=== PATIENT | female | born 1940 | race Caucasian/White ===

== ENCOUNTER 2016-06-03 09:10 | Outpatient (CLI) | payer MEDICARE, OTHER | END 2016-06-03 23:59 | DX: I10 Essential (primary) hypertension (principal) ==

== ENCOUNTER 2017-05-20 08:00 | Outpatient (CLI) | payer MEDICARE, OTHER | END 2017-05-20 08:01 | disposition home or self-care (01) | LOC: LAB.R 08:00 | PROVIDERS: ATTEND Family Medicine | DX: R35.0 Frequency of micturition (principal) | CPT/HCPCS: 87077; 87086 ==

== ENCOUNTER 2017-06-23 08:00 | Outpatient (CLI) | payer MEDICARE, OTHER ==
[2017-06-23 12:49] LABS: BASOPHILS % (AUTO) 0.4 %; EOSINOPHILS # (AUTO) 0.2 10^3/uL (0.0-0.7); EOSINOPHILS % (AUTO) 3.2 %; HGB - HEMOGLOBIN 13.2 g/dL (12.0-16.0); LYMPHOCYTES # (AUTO) 1.5 10^3/uL (1.5-3.5); LYMPHOCYTES % (AUTO) 24.2 %; MEAN CORPUSCULAR HEMOGLOBIN 29.4 pg (27.0-31.0); MEAN CORPUSCULAR HGB CONC 33.3 g/dL (32.0-36.0); MEAN CORPUSCULAR VOLUME 88.3 fL (81.0-99.0); MEAN PLATELET VOLUME 8.4 fL (7.9-10.8); MONOCYTES # (AUTO) 0.5 10^3/uL (0.0-1.0); MONOCYTES % (AUTO) 7.9 %; NEUTROPHILS % (AUTO) 64.3 %; PLT - PLATELET COUNT 284 10^3/uL (130-450); RED BLOOD COUNT 4.49 10^6/uL (4.20-5.40); RED CELL DISTRIBUTION WIDTH 13.8 % (12.0-15.0); WHITE BLOOD COUNT 6.2 x10^3/uL (4.8-10.8)
[2017-06-23 13:41] LABS: ALBUMIN 3.3 g/dL (3.2-5.5); ALKALINE PHOSPHATASE 57 IU/L (42-121); ALT ALANINE AMINOTRANSFERASE 16 IU/L (10-60); AST ASPARTATE AMINOTRANSFERASE 22 IU/L (10-42); BILIRUBIN,TOTAL 0.4 mg/dL (0.2-1.0); BUN - BLOOD UREA NITROGEN 18 mg/dL (6-20); CALCIUM 8.7 mg/dL (8.5-10.3); CARBON DIOXIDE - CO2 28 mmol/L (21-32); CHLORIDE 108 mmol/L (101-111); CHOL/HDL RATIO 3.1 (<4.4); CHOLESTEROL 175 mg/dL; GFR - MDRD 54 (>89); GLUCOSE 90 mg/dL (70-100); HDL CHOLESTEROL 57 mg/dL; LDL CHOLESTEROL,CALCULATED 97 mg/dL; LDL/HDL RATIO 1.7 (<4.4); SODIUM 139 mmol/L (135-145); TOTAL PROTEIN 6.5 g/dL (6.7-8.2); VLDL CHOLESTEROL 21 mg/dL
== END 2017-06-23 08:01 | disposition home or self-care (01) ==
LOC: LAB.WCP 08:00
PROVIDERS: ATTEND Family Medicine
DX: E78.5 Hyperlipidemia, unspecified (principal)
CPT/HCPCS: 36415; 80053; 80061; 83721; 85025

== ENCOUNTER 2018-03-01 09:25 | Outpatient (CLI) | payer MEDICARE, OTHER ==
--- NOTE | 2018-03-02 14:40 | Mammography Report ---
Reason: ANNUAL SCREENING Procedure Date: 03/01/2018 Accession Number: [id number] / [id number] Procedure: HARRY - Screening Mammo w/Yovanny CPT Code: FULL RESULT: EXAM: Screening Mammo w/Yovanny DATE: 03/01/2018 11:06 AM CLINICAL HISTORY: Routine screening. No personal or family history of breast cancer. TECHNIQUE: Bilateral CC and MLO views were obtained. COMPARISON: 02/28/2016 through 11/01/2012. FINDINGS: The breasts demonstrate scattered fibroglandular densities bilaterally. Bilateral breast: There are multiple stable round and oval benign-appearing masses some of which are associated with popcorn type calcification in the left breast. There are no suspicious masses, calcifications or areas of distortion. IMPRESSION: Benign findings RECOMMENDATION: Routine annual screening unless otherwise clinically indicated. BI-RADS CATEGORY 2: Benign findings STANDARD QUALIFYING STATEMENTS: 1. This examination was not reviewed with the aid of Computer-Aided Detection (CAD). 2. A negative or benign imaging report should not preclude biopsy if clinically suspicious findings are present. 3. Dense breasts may obscure an underlying neoplasm. 4. This examination was reviewed with the aid of 3D breast imaging (tomosynthesis).
== END 2018-03-01 09:26 | disposition home or self-care (01) ==
LOC: DI 09:25
DX: Z12.31 Encounter for screening mammogram for malignant neoplasm of breast (principal)
CPT/HCPCS: 77063; 77067

== ENCOUNTER 2018-04-26 14:41 | Outpatient (CLI) | payer MEDICARE, OTHER ==
[2018-04-26 19:29] LABS: BASOPHILS % (AUTO) 0.3 %; EOSINOPHILS # (AUTO) 0.2 10^3/uL (0.0-0.7); EOSINOPHILS % (AUTO) 3.2 %; HGB - HEMOGLOBIN 13.2 g/dL (12.0-16.0); LYMPHOCYTES # (AUTO) 1.5 10^3/uL (1.5-3.5); LYMPHOCYTES % (AUTO) 24.8 %; MEAN CORPUSCULAR HEMOGLOBIN 29.6 pg (27.0-31.0); MEAN CORPUSCULAR HGB CONC 32.7 g/dL (32.0-36.0); MEAN CORPUSCULAR VOLUME 90.5 fL (81.0-99.0); MEAN PLATELET VOLUME 9.3 fL (7.9-10.8); MONOCYTES # (AUTO) 0.4 10^3/uL (0.0-1.0); MONOCYTES % (AUTO) 6.8 %; NEUTROPHILS % (AUTO) 64.9 %; PLT - PLATELET COUNT 281 10^3/uL (130-450); RED BLOOD COUNT 4.47 10^6/uL (4.20-5.40); RED CELL DISTRIBUTION WIDTH 14.4 % (12.0-15.0); WHITE BLOOD COUNT 6.1 x10^3/uL (4.8-10.8)
[2018-04-26 19:48] LABS: ALBUMIN 3.5 g/dL (3.2-5.5); ALBUMIN/GLOBULIN RATIO 1.2 (1.0-2.2); ALKALINE PHOSPHATASE 68 IU/L (42-121); ALT ALANINE AMINOTRANSFERASE 18 IU/L (10-60); AST ASPARTATE AMINOTRANSFERASE 27 IU/L (10-42); BILIRUBIN,TOTAL 0.8 mg/dL (0.2-1.0); BUN - BLOOD UREA NITROGEN 14 mg/dL (6-20); CALCIUM 8.8 mg/dL (8.5-10.3); CARBON DIOXIDE - CO2 28 mmol/L (21-32); CHLORIDE 107 mmol/L (101-111); CHOL/HDL RATIO 2.7 (<4.4); CHOLESTEROL 182 mg/dL; CREATININE 0.8 mg/dL (0.4-1.0); GFR - MDRD 70 (>89); GLUCOSE 87 mg/dL (70-100); HDL CHOLESTEROL 68 mg/dL; LDL CHOLESTEROL,CALCULATED 98 mg/dL; LDL/HDL RATIO 1.4 (<4.4); SODIUM 142 mmol/L (135-145); TOTAL PROTEIN 6.5 g/dL (6.7-8.2); VLDL CHOLESTEROL 16 mg/dL
== END 2018-04-26 23:59 | disposition home or self-care (01) ==
LOC: LAB.WCP 14:41
PROVIDERS: ATTEND Family Medicine
DX: E78.5 Hyperlipidemia, unspecified (principal); E66.9 Obesity, unspecified
CPT/HCPCS: 36415; 80053; 80061; 83721; 84443; 85025

== ENCOUNTER 2018-06-28 08:00 | Outpatient (CLI) | payer MEDICARE, OTHER | END 2018-06-28 23:59 | disposition home or self-care (01) | LOC: LAB.R 08:00 | PROVIDERS: ATTEND Family Medicine | DX: N39.0 Urinary tract infection, site not specified (principal) | CPT/HCPCS: 87086; 87181 ==

== ENCOUNTER 2018-11-03 08:00 | Outpatient (CLI) | payer MEDICARE, OTHER | END 2018-11-03 23:59 | disposition home or self-care (01) | LOC: LAB.R 08:00 | PROVIDERS: ATTEND Family Medicine | DX: N39.0 Urinary tract infection, site not specified (principal) | CPT/HCPCS: 87086 ==

== ENCOUNTER 2018-11-03 08:00 | Outpatient (CLI) | payer MEDICARE, OTHER | END 2018-11-03 08:01 | disposition home or self-care (01) | LOC: LAB.WCP 08:00 | PROVIDERS: ATTEND Family Medicine | DX: N39.0 Urinary tract infection, site not specified (principal) | CPT/HCPCS: 81002; 87086 ==

== ENCOUNTER 2018-11-04 12:05 | Outpatient (CLI) | payer MEDICARE, OTHER ==
--- NOTE | 2018-11-04 14:47 | XRAY Report ---
Reason: LOW BACK PAIN Procedure Date: 11/04/2018 Accession Number: [id number] / [id number] Procedure: XR - Lumbar Spine 2 View CPT Code: FULL RESULT: EXAM: LUMBOSACRAL SPINE RADIOGRAPHY EXAM DATE: 11/04/2018 12:18 PM. CLINICAL HISTORY: Low back pain. COMPARISONS: None. TECHNIQUE: 3 views. FINDINGS: The bones are qualitatively osteopenic; this limits evaluation for underlying fractures or masses. The patient had difficulty holding still which degraded the lateral view limiting evaluation, motion artifact. Alignment: There are approximately 1.1 cm of anterolisthesis of L4 on L5, approximately 3 mm of anterolisthesis of L3 on L4 with approximately 5 mm of retrolisthesis of L2 on L3. No scoliosis. Bones: Five uki-xlz-mnesrkf lumbar vertebral bodies are present. No fractures or bone lesions. Disks: There is mild multilevel loss of disk space height. Facets: There is severe facet arthropathy at L5 and at least moderate facet arthropathy throughout the remaining lumbar spine. Sacroiliac Joints: Unremarkable. Soft Tissues: Normal. The visualized bowel gas pattern is normal. IMPRESSION: Multilevel anterolisthesis with significant facet arthropathy as described. RADIA
== END 2018-11-04 12:06 | disposition home or self-care (01) ==
LOC: DI 12:05
PROVIDERS: ATTEND Family Medicine
DX: M47.816 Spondylosis without myelopathy or radiculopathy, lumbar region (principal)
CPT/HCPCS: 72100

== ENCOUNTER 2019-04-15 09:53 | Outpatient (CLI) | payer MEDICARE, OTHER ==
--- NOTE | 2019-04-18 08:51 | Mammography Report ---
Reason: ROUTINE MAMMO Procedure Date: 04/15/2019 Accession Number: [id number] / [id number] Procedure: HARRY - Screening Mammo w/Yovanny CPT Code: Final Report FULL RESULT: EXAM: Screening Mammo w/Yovanny DATE: 04/15/2019 10:23 AM CLINICAL HISTORY: Screening encounter. TECHNIQUE: (B) - Bilateral CC and MLO views were obtained. COMPARISON: 03/01/2018 through 11/01/2012. PARENCHYMAL PATTERN: (A) - The breast(s) demonstrate(s) scattered fibroglandular densities. FINDINGS: There are coarse typically benign calcifications. There are no suspicious masses, calcifications, or areas of distortion. IMPRESSION: Benign findings. BI-RADS category 2. RECOMMENDATION: (ANNUAL) - Recommend routine annual screening mammography. BI-RADS CATEGORY: (2) - Benign Findings. STANDARD QUALIFYING STATEMENTS: 1. This examination was not reviewed with the aid of Computer-Aided Detection (CAD). 2. A negative or benign imaging report should not preclude biopsy if clinically suspicious findings are present. 3. Dense breasts may obscure an underlying neoplasm. 4. This examination was reviewed with the aid of 3D breast imaging (tomosynthesis).
== END 2019-04-15 09:54 | disposition home or self-care (01) ==
LOC: DI 09:53
DX: Z12.31 Encounter for screening mammogram for malignant neoplasm of breast (principal)
CPT/HCPCS: 77063; 77067

== ENCOUNTER 2020-01-20 08:00 | Outpatient (CLI) | payer MEDICARE, OTHER ==
[2020-01-20 19:06] LABS: BASOPHILS % (AUTO) 0.3 %; EOSINOPHILS # (AUTO) 0.2 10^3/uL (0.0-0.7); EOSINOPHILS % (AUTO) 2.9 %; HGB - HEMOGLOBIN 13.2 g/dL (12.0-16.0); LYMPHOCYTES # (AUTO) 1.6 10^3/uL (1.5-3.5); LYMPHOCYTES % (AUTO) 23.9 %; MEAN CORPUSCULAR HEMOGLOBIN 29.6 pg (27.0-31.0); MEAN CORPUSCULAR HGB CONC 31.6 g/dL (32.0-36.0); MEAN CORPUSCULAR VOLUME 93.7 fL (81.0-99.0); MEAN PLATELET VOLUME 11.2 fL (7.9-10.8); MONOCYTES # (AUTO) 0.5 10^3/uL (0.0-1.0); MONOCYTES % (AUTO) 7.7 %; NEUTROPHILS # (AUTO) 4.3 10^3/uL (1.5-6.6); NEUTROPHILS % (AUTO) 64.9 %; PLT - PLATELET COUNT 289 10^3/uL (130-450); RED BLOOD COUNT 4.46 10^6/uL (4.20-5.40); RED CELL DISTRIBUTION WIDTH 14.6 % (12.0-15.0); WHITE BLOOD COUNT 6.6 x10^3/uL (4.8-10.8)
[2020-01-20 19:26] LABS: ALBUMIN 3.6 g/dL (3.2-5.5); ALBUMIN/GLOBULIN RATIO 1.1 (1.0-2.2); ALKALINE PHOSPHATASE 57 IU/L (42-121); ALT ALANINE AMINOTRANSFERASE 16 IU/L (10-60); AST ASPARTATE AMINOTRANSFERASE 22 IU/L (10-42); BILIRUBIN,TOTAL 0.8 mg/dL (0.2-1.0); BUN - BLOOD UREA NITROGEN 20 mg/dL (6-20); CALCIUM 9.2 mg/dL (8.5-10.3); CARBON DIOXIDE - CO2 27 mmol/L (21-32); CHLORIDE 106 mmol/L (101-111); CHOL/HDL RATIO 2.6 (<4.4); CHOLESTEROL 169 mg/dL; CREATININE 0.8 mg/dL (0.4-1.0); GLUCOSE 94 mg/dL (70-100); HDL CHOLESTEROL 66 mg/dL; LDL CHOLESTEROL,CALCULATED 92 mg/dL; LDL/HDL RATIO 1.4 (<4.4); SODIUM 141 mmol/L (135-145); TOTAL PROTEIN 6.9 g/dL (6.7-8.2); VLDL CHOLESTEROL 11 mg/dL
== END 2020-01-20 23:59 | disposition home or self-care (01) ==
LOC: LAB.WCP 08:00
PROVIDERS: ATTEND Internal Medicine Cardiovascular Disease
DX: I48.91 Unspecified atrial fibrillation (principal); E78.5 Hyperlipidemia, unspecified
CPT/HCPCS: 36415; 80053; 80061; 83721; 85025

== ENCOUNTER 2020-05-03 08:28 | Outpatient (CLI) | payer MEDICARE, OTHER ==
--- NOTE | 2020-05-04 07:16 | Mammography Report ---
BILATERAL DIGITAL SCREENING MAMMOGRAM 3D/2D: 05/03/2020 CLINICAL: Routine screening. Comparison is made to exams dated: 04/15/2019 mammogram, 03/01/2018 mammogram, and 02/28/2016 mammog [facility]. The tissue of both breasts is predominantly fatty. There is a benign calcification in the left breast. No significant masses, calcifications, or other findings are seen in either breast. There has been no significant interval change. IMPRESSION: BENIGN There is no mammographic evidence of malignancy. A 1 year screening mammogram is recommended. This exam was interpreted at Station ID: [id number]. NOTE: For mammograms, a report in lay terms will be sent to the patient. Approximately 15% of breast malignancies will not be visualized mammographically. In the management of a palpable breast mass, a negative mammogram must not discourage biopsy of a clinically suspicious lesion. Electronically Signed By: Gail montesinos/penrad:05/03/2020 10:46:08 ACR BI-RADS Category 2: Benign Finding(s) 3342F PARENCHYMAL PATTERN: (F) - The breast(s) demonstrate(s) diffuse fatty replacement. BI-RADS CATEGORY: (2) - 2 RECOMMENDATION: (ANNUAL) - Recommend routine annual screening mammography. [id number] 1 year screening LATERALITY: (B)
== END 2020-05-03 08:29 | disposition home or self-care (01) ==
LOC: DI.N 08:28
DX: Z12.31 Encounter for screening mammogram for malignant neoplasm of breast (principal)
CPT/HCPCS: 77067

== ENCOUNTER 2021-01-12 08:00 | Outpatient (CLI) | payer MEDICARE, OTHER | END 2021-01-12 23:59 | disposition home or self-care (01) | LOC: LAB.N 08:00 | PROVIDERS: ATTEND Family Medicine | DX: N39.0 Urinary tract infection, site not specified (principal) | CPT/HCPCS: 87086; 87181 ==

== ENCOUNTER 2021-01-24 13:21 | Outpatient (CLI) | payer MEDICARE, OTHER | END 2021-01-24 23:59 | disposition home or self-care (01) | LOC: LAB.N 13:21 | PROVIDERS: ATTEND Family Medicine | DX: N39.0 Urinary tract infection, site not specified (principal) | CPT/HCPCS: 87086; 87181 ==

== ENCOUNTER 2021-03-04 11:00 | Outpatient (CLI) | payer MEDICARE, OTHER ==
[2021-03-04 18:16] LABS: BASOPHILS % (AUTO) 0.3 %; EOSINOPHILS # (AUTO) 0.1 10^3/uL (0.0-0.7); EOSINOPHILS % (AUTO) 3.6 %; HGB - HEMOGLOBIN 13.6 g/dL (12.0-16.0); LYMPHOCYTES # (AUTO) 1.5 10^3/uL (1.5-3.5); LYMPHOCYTES % (AUTO) 37.6 %; MEAN CORPUSCULAR HGB CONC 30.9 g/dL (32.0-36.0); MEAN CORPUSCULAR VOLUME 93.8 fL (81.0-99.0); MEAN PLATELET VOLUME 10.2 fL (7.9-10.8); MONOCYTES # (AUTO) 0.4 10^3/uL (0.0-1.0); MONOCYTES % (AUTO) 11.3 %; NEUTROPHILS # (AUTO) 1.8 10^3/uL (1.5-6.6); NEUTROPHILS % (AUTO) 46.9 %; PLT - PLATELET COUNT 276 10^3/uL (130-450); RED BLOOD COUNT 4.69 10^6/uL (4.20-5.40); RED CELL DISTRIBUTION WIDTH 14.5 % (12.0-15.0); WHITE BLOOD COUNT 3.9 x10^3/uL (4.8-10.8)
[2021-03-04 18:40] LABS: ALBUMIN 3.5 g/dL (3.2-5.5); ALBUMIN/GLOBULIN RATIO 1.1 (1.0-2.2); ALKALINE PHOSPHATASE 57 IU/L (42-121); ALT ALANINE AMINOTRANSFERASE 20 IU/L (10-60); AST ASPARTATE AMINOTRANSFERASE 26 IU/L (10-42); BILIRUBIN,TOTAL 0.7 mg/dL (0.2-1.0); BUN - BLOOD UREA NITROGEN 21 mg/dL (6-20); CALCIUM 8.9 mg/dL (8.5-10.3); CARBON DIOXIDE - CO2 31 mmol/L (21-32); CHLORIDE 102 mmol/L (101-111); CHOL/HDL RATIO 3.3 (<4.4); CHOLESTEROL 238 mg/dL; CREATININE 0.9 mg/dL (0.4-1.0); GFR - MDRD 60 (>89); GLUCOSE 80 mg/dL (70-100); HDL CHOLESTEROL 73 mg/dL; LDL CHOLESTEROL,CALCULATED 156 mg/dL; LDL/HDL RATIO 2.1 (<4.4); POTASSIUM 4.7 mmol/L (3.5-5.0); SODIUM 139 mmol/L (135-145); TOTAL PROTEIN 6.7 g/dL (6.7-8.2); TRIGLYCERIDES 45 mg/dL; VLDL CHOLESTEROL 9 mg/dL
[2021-03-04 18:44] LABS: THYROID STIMULATING HORMONE 2.06 uIU/mL (0.34-5.60)
== END 2021-03-04 23:59 | disposition home or self-care (01) ==
LOC: LAB.WCP 11:00
PROVIDERS: ATTEND Family Medicine
DX: M43.16 Spondylolisthesis, lumbar region (principal); I48.0 Paroxysmal atrial fibrillation; J44.9 Chronic obstructive pulmonary disease, unspecified; J98.4 Other disorders of lung; I10 Essential (primary) hypertension; E78.5 Hyperlipidemia, unspecified
CPT/HCPCS: 36415; 80053; 80061; 83721; 84443; 85025

== ENCOUNTER 2021-04-16 10:32 | Emergency (ER) | payer MEDICARE, OTHER ==
--- NOTE | 2021-04-16 11:26 | XRAY Report ---
PROCEDURE: Wrist 4 View LT INDICATIONS: Trauma TECHNIQUE: 4 views of the wrist were acquired. COMPARISON: None FINDINGS: Bones: There is a comminuted, mildly impacted intra-articular fracture of the distal left radius wit h dorsal angulation of the distal fracture fragment. Carpal alignment appears to be maintained. There is widening of the scapholunate interval. No definite scaphoid fracture visualized. Small ossificati on proximal to the distal left ulnar styloid process may represent an accessory ossicle, remote injur y, versus displaced fracture off the tip of the ulnar styloid. This area is not well visualized on pr ovided images. Diffuse osteopenia. No suspicious bony lesions. Scaphoid view: No definite scaphoid fracture. Mild widening of the scapholunate interval. Soft tissues: No suspicious soft tissue calcifications. IMPRESSION: Moderately displaced comminuted, intra-articular fracture of the distal left radius. Widening of the scapholunate interval suggestive of scapholunate ligament injury. No definite scaphoi d fracture visualized. Age-indeterminate ossification adjacent to the distal tip of the ulnar styloid process which may repr esent a displaced styloid tip fracture fragment. Reviewed by: Estuardo Emery MD on 04/16/2021 11:25 AM PST Approved by: Estuardo Emery MD on 04/16/2021 11:25 AM PST Station ID: [id number]
[2021-04-16] MEDS ORDERED: ROPIVACAINE 0.5% PF 30 ML VIAL SUBQ STA (12:34)
--- NOTE | 2021-04-16 12:41 | ED Physician Documentation ---
PD HPI UPPER EXT INJURY - Stated complaint Stated Complaint: LT WRIST INJ - Chief complaint Chief Complaint: Trauma Ext - History obtained from History obtained from: Patient - History of Present Illness Location: Left, Wrist Type of injury: Fall Where injury occurred: Home Timing - onset: How many hours ago (1) Timing - duration: Hours (1) Pain level max: 5 Pain level now: 4 Improved by: Rest, Immobilization Worsened by: Moving, Palpating Associated symptoms: No: Weakness, Numbness, Tingling, Swelling Contributing factors: No: Anticoagulated, Prior ortho surgery, Prosthetic joint, Work related - Additonal information Additional information: Patient is right handed no head, neck or back pain Review of Systems Constitutional: denies: Fever, Chills Nose: denies: Rhinorrhea / runny nose, Congestion Throat: denies: Sore throat Cardiac: denies: Chest pain / pressure Respiratory: denies: Cough GI: denies: Nausea, Vomiting, Constipation, Diarrhea Skin: denies: Rash Musculoskeletal: denies: Neck pain, Back pain PD PAST MEDICAL HISTORY - Past Medical History Past Medical History: Yes Cardiovascular: Atrial fibrillation, Other Respiratory: Asthma, COPD Endocrine/Autoimmune: None GI: Hiatal hernia, Diverticulitis : Other HEENT: None, Other Psych: None Musculoskeletal: Osteoarthritis Derm: None - Past Surgical History General: Colonoscopy Ortho: 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 surgery /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: LEEP (Cervical surgery) - Present Medications Home Medications: Ambulatory Orders Medication Instructions Recorded Confirmed Albuterol [Ventolin Hfa] 2 puffs INH Q4H PRN 07/28/14 08/03/14 Aspirin [Aspir 81] 81 mg PO DAILY 07/28/14 08/03/14 Atorvastatin [Lipitor] 20 mg PO DAILY 07/28/14 08/03/14 Ferrous Sulfate [Iron Supplement] 325 mg PO DAILY 07/28/14 08/03/14 Fluticasone/Salmeterol 250/50 1 puffs INH BID 07/28/14 08/03/14 [Advair 250 Mcg/50 Mcg] Pyridoxine HCl [Vitamin B-6] 25 mg PO DAILY 07/28/14 08/03/14 atenoloL [Atenolol] 12.5 mg PO DAILY 07/28/14 08/03/14 HYDROcod/ACETAM 5/325 [[place] 5/325] 1 - 2 ea PO Q6H PRN #14 tablet 04/16/21 - Allergies Allergies/Adverse Reactions: Allergies Allergy/AdvReac Type Severity Reaction Status Date / Time atenolol Allergy Unknown Verified 04/16/21 10:38 ciprofloxacin Allergy Rash Verified 04/16/21 10:38 metronidazole [From Flagyl] Allergy Rash Verified 04/16/21 10:38 pollen extracts Allergy Unknown Verified 04/16/21 12:43 PD ED PE NORMAL - Vitals Vital signs reviewed: Yes - General General: Alert and oriented X 3, No acute distress - HEENT HEENT: Moist mucous membranes - Neck Neck: Supple, no meningeal sign - Cardiac Cardiac: RRR, Strong equal pulses - Respiratory Respiratory: No respiratory distress, Clear bilaterally - Abdomen Abdomen: Soft, Non tender, Non distended - Derm Derm: Warm and dry - Extremities Extremities: Other (deformity to the L wrist. NVI.) - Neuro Neuro: Alert and oriented X 3 - Psych Psych: Normal mood, Normal affect Results - Vitals Vitals: Vital Signs - 24 hr 04/16/21 04/16/21 10:38 14:37 Temperature 36.5 C 36.6 C Heart Rate 100 101 H Respiratory 16 14 Rate Blood Pressure 152/79 H 101/71 O2 Saturation 97 99 Oxygen O2 Source Room air - Rads (name of study) L wrist Radiology: Final report received, EMP read contemporaneously, See rad report (IMPRESSION: Moderately displaced comminuted, intra-articular fracture of the distal left radius. Widening of the scapholunate interval suggestive of scapholunate ligament injury. No definite scaphoid fracture visualized. ) L wrist post reduction Radiology: Final report received, EMP read contemporaneously, See rad report (Intra-articular, distal radius fracture dorsally displaced and angulated. ) Procedures - Splint (location) L wrist Splint applied by: Physician, Tech Type of splint: Fiberglass, Sugar tong Other: Patient tolerated well, No complications, Neurovascular intact, Good alignment, Sling provided - Reduction Body part reduced: Left, Wrist Fracture or dislocation: Fracture Anesthesia: Hematoma block, Other (ropivicaine) Reduction aftercare: NV intact, Xray confirms reduction, Alignment improved, Splint applied, Sling, Patient tolerated well PD MEDICAL DECISION MAKING - ED course Complexity details: reviewed results, re-evaluated patient, considered differential, d/w patient, d/w product/industry consultant ED course: 80-year-old female with a left wrist fracture. This was reduced with closed reduction. Will likely need operative intervention as appears to have ligamentous injury as well. Neurovascularly intact. Orthopedic PAMateo, assisted with the reduction. I am prescribing a short course of short-acting opioid pain medication for this patient. 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 I have discussed that the opioids are for short term therapy only, and will not be refilled from the ED. patient counseled regarding signs and symptoms for which I believe and urgent re-evaluation would be necessary. Patient with good understanding of and agreement to plan and is comfortable going home at this time This document was made in part using voice recognition software. While efforts are made to proofread this document, sound alike and grammatical errors may occur. Departure - Departure Disposition: 01 Home, Self Care Clinical Impression: Wrist fracture Qualifiers: Encounter type: initial encounter Fracture type: closed Laterality: left Qualified Code(s): S62.102A - Fracture of unspecified carpal bone, left wrist, initial encounter for closed fracture Condition: Good Instructions: ED Fx Wrist General Follow-Up: [facility] [Provider Group] - Within 1 week Prescriptions: HYDROcod/ACETAM 5/325 [[place]arshall 5/325] 1 - 2 ea PO Q6H PRN #14 tablet PRN Reason: Pain Comments: Please follow-up with orthopedics in 1 week for repeat evaluation. Your pain medication was sent to [facility] in [place]. Return if you worsen. Keep the area elevated. Do not place any rings or constrictive devices on your fingers. I am prescribing a short course of narcotic pain medication for you. These are p otentially dangerous and addictive medications that should be used carefully. These medications may constipate you. Take an mwwk-ago-mhksnmk stool softener (docusate) twice daily with plenty of water while taking these medications. If you go 24 hours without a bowel movement, take jihp-tfb-dvlanaa miralax, per package instructions. Do not drink or drive while taking these medications. If you received narcotic or sedating medications while in the emergency department, do not drive for 24 hours. Store this medication in a safe, secure place and out of reach of children. It is a violation of federal law to give or sell this medication to another person or to use in a manner other than prescribed. The ED will not refill narcotic prescriptions, including prescriptions lost or stolen. To dispose of unwanted medications: 1. [facility] at [address] in [place] has a medication drop box. They accept prescription medications (in pill form) Thursday through Thursday 9:00 a.m. to 5:00 p.m. 2. The [facility] accepts prescription medications (in pill form only) for disposal year round. Call for more informat ion. 3. Contact the [facility] for the next [facility] sponsored prescription drug collection event. , [phone], or [phone]; Discharge Date/Time: 04/16/21 14:40
[2021-04-16] MEDS: ROPIVACAINE 0.5% PF 20 ML AMPULE SUBQ ONE (13:36)
--- NOTE | 2021-04-16 13:53 | XRAY Report ---
PROCEDURE: Wrist 2 View LT INDICATIONS: post reduction TECHNIQUE: 2 views of the wrist were acquired. COMPARISON: 04/08/2021 at 1047 hours. FINDINGS: Bones: Comminuted comminuted fracture of the distal radius. Ulnar styloid process fracture noted. Rad ius fracture is dorsally displaced and angulated. Ulnar styloid process fractures distally displaced. Soft tissues: No suspicious soft tissue calcifications. IMPRESSION: Intra-articular, distal radius fracture dorsally displaced and angulated. Reviewed by: Pina Dodson MD, PhD on 04/16/2021 1:51 PM PST Approved by: Pina Dodson MD, PhD on 04/16/2021 1:51 PM PST Station ID: [id number]
[2021-04-16] MEDS: HYDROcod/ACETAM 5/325 MG TABLET PO STA (14:15)
[2021-04-16 14:40] VITALS: BP 101/71
== END 2021-04-16 14:40 | disposition home or self-care (01) ==
LOC: ED 10:32
DX: S52.572A Other intraarticular fracture of lower end of left radius, initial encounter for closed fracture (principal); W01.0XXA Fall on same level from slipping, tripping and stumbling without subsequent striking against object, initial encounter; Y92.009 Unspecified place in unspecified non-institutional (private) residence as the place of occurrence of the external cause
CPT/HCPCS: 25605; 73100; 73110; 99283; A9270

== ENCOUNTER 2021-04-18 09:40 | Emergency (ER) | payer MEDICARE, OTHER ==
[2021-04-18 09:51] VITALS: BP 132/88
[2021-04-18] MEDS ORDERED: oxyCODONE 5 MG TABLET PO STA (10:01)
--- NOTE | 2021-04-18 10:05 | ED Physician Documentation ---
History of Present Illness - Stated complaint Stated Complaint: L WRIST PAIN,CONSTIPATION - Chief complaint Chief Complaint: Ext Problem - History obtained from History obtained from: Patient - History of Present Illness Timing: Today Pain level max: 9 Pain level now: 7 - Additonal information Additional information: Patient is a 80-year-old female who presents to the emergency department complaining of left wrist pain. Seen here 2 days ago for left wrist fracture. Patient has an appointment on Thursday with orthopedics. She states that her PCP would not change her pain medications and referred her back to the ER for pain management. Patient also complains of constipation. Is not taking anything for this. Review of Systems Constitutional: denies: Fever, Chills Respiratory: denies: Cough GI: reports: Constipation. 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 SME: LEEP (Cervical surgery) - Present Medications Home Medications: Ambulatory Orders Medication Instructions Recorded Confirmed Albuterol [Ventolin Hfa] 2 puffs INH Q4H PRN 07/28/14 08/03/14 Aspirin [Aspir 81] 81 mg PO DAILY 07/28/14 08/03/14 Atorvastatin [Lipitor] 20 mg PO DAILY 07/28/14 08/03/14 Ferrous Sulfate [Iron Supplement] 325 mg PO DAILY 07/28/14 08/03/14 Fluticasone/Salmeterol 250/50 1 puffs INH BID 07/28/14 08/03/14 [Advair 250 Mcg/50 Mcg] Pyridoxine HCl [Vitamin B-6] 25 mg PO DAILY 07/28/14 08/03/14 atenoloL [Atenolol] 12.5 mg PO DAILY 07/28/14 08/03/14 HYDROcod/ACETAM 5/325 [[place] 5/325] 1 - 2 ea PO Q6H PRN #14 tablet 04/16/21 Magnesium Citrate 296 ml PO ONCE PRN #296 ml 04/18/21 Oxycodone HCl/Acetaminophen 1 - 2 each PO Q6H PRN #20 tablet 04/18/21 [Percocet 5-325 mg Tablet] polyethylene glycoL 3350 [Miralax] 17 gm PO DAILY PRN #1 bottle 04/18/21 - Allergies Allergies/Adverse Reactions: Allergies Allergy/AdvReac Type Severity Reaction Status Date / Time atenolol Allergy Unknown Verified 04/18/21 09:51 ciprofloxacin Allergy Rash Verified 04/18/21 09:51 metronidazole [From Flagyl] Allergy Rash Verified 04/18/21 09:51 pollen extracts Allergy Unknown Verified 04/18/21 09:51 PD ED PE NORMAL - Vitals Vital signs reviewed: Yes - General General: Alert and oriented X 3, No acute distress - HEENT HEENT: Moist mucous membranes - Neck Neck: Supple, no meningeal sign - Cardiac Cardiac: RRR - Respiratory Respiratory: No respiratory distress, Clear bilaterally - Derm Derm: Warm and dry - Extremities Extremities: Other (L arm in splint. NVI. mild swelling to hand. no bruising. brisk cap refill. normal skin temperature and color. ) - Neuro Neuro: Alert and oriented X 3 Results - Vitals Vitals: Vital Signs - 24 hr 04/18/21 09:44 Temperature 36.6 C Heart Rate 94 Respiratory 17 Rate Blood Pressure 132/88 H O2 Saturation 99 Oxygen O2 Source Room air PD MEDICAL DECISION MAKING - ED course Complexity details: reviewed old records, considered differential, d/w patient ED course: Patient with a known wrist fracture. We will change her pain medication for home. She has an appointment on Thursday with orthopedics. We will have her follow-up with orthopedics for further care. We will also place her on MiraLAX for constipation. Patient counseled regarding signs and symptoms for which I believe and urgent re-evaluation would be necessary. Patient with good understanding of and agreement to plan and is comfortable going home at this time This document was made in part using voice recognition software. While efforts are made to proofread this document, sound alike and grammatical errors may occur. I am prescribing a short course of short-acting opioid pain medication for this patient. 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 I have discussed that the opioids are for short term therapy only, and will not be refilled from the ED. Departure - Departure Disposition: 01 Home, Self Care Clinical Impression: Wrist fracture Qualifiers: Encounter type: initial encounter Fracture type: closed Laterality: left Qualified Code(s): S62.102A - Fracture of unspecified carpal bone, left wrist, initial encounter for closed fracture Constipation Qualifiers: Constipation type: unspecified constipation type Qualified Code(s): K59.00 - Constipation, unspecified Condition: Good Instructions: ED Constipation, ED Fx Wrist General Follow-Up: [facility] [Provider Group] - 04/22/21 Prescriptions: Magnesium Citrate 296 ml PO ONCE PRN #296 ml PRN Reason: Constipation polyethylene glycoL 3350 [Miralax] 17 gm PO DAILY PRN #1 bottle PRN Reason: Constipation Oxycodone HCl/Acetaminophen [Percocet 5-325 mg Tablet] 1 - 2 each PO Q6H PRN #20 tablet PRN Reason: pain Comments: Your prescriptions were sent to [facility] in [place]. Please follow-up with orthopedics on Thursday as scheduled. Return if you worsen. I am prescribing a short course of narcotic pain medication for you. These are potentially dangerous and addictive medications that should be used carefully. These medications may constipate you. Take an nqen-lyu-yxubpzl stool softener (docusate) twice daily with plenty of water while taking these medications. If you go 24 hours without a bowel movement, take rgpc-sra-thxptno miralax, per package instructions. Do not drink or drive while taking these medications. If you received narcotic or sedating medications while in the emergency department, do not drive for 24 hours. Store this medication in a safe, secure place and out of reach of children. It is a violation of federal law to give or sell this medication to another person or to use in a manner other than prescribed. The ED will not refill narcotic prescriptions, including prescriptions lost or stolen. To dispose of unwanted medications: 1. [facility] at [address] in [place] has a medication drop box. They accept prescription medications (in pill form) Thursday through Thursday 9:00 a.m. to 5:00 p.m. 2. The [facility] Police Department accepts prescription medications (in pill form only) for disposal year round. Call for more information. 3. Contact the [facility] for the next [facility] sponsored prescription drug collection event. , [phone], or [phone];
== END 2021-04-18 10:30 | disposition home or self-care (01) ==
LOC: ED 09:40
DX: S62.102A Fracture of unspecified carpal bone, left wrist, initial encounter for closed fracture (principal); K59.00 Constipation, unspecified; I48.91 Unspecified atrial fibrillation
CPT/HCPCS: 99282; 99283; A9270

== ENCOUNTER 2021-04-24 12:31 | Day surgery (SDC) | payer MEDICARE, OTHER ==
[2021-04-24] MEDS ORDERED: CEFAZOLIN SODIUM IN 0.9 % NACL 2 GM/100 ML BAG IV ONE (12:42)
[2021-04-24] MEDS ORDERED: LACTATED RINGERS 1,000 ML IV ONE (13:09)
--- NOTE | 2021-04-24 14:40 | ANESTHESIA ---
Pre-Anesthesia VS, & Labs - Diagnosis displaced fracture left wrist, left carpal tunnel syndrome - Procedure left wrist closed reduction and percutaneous pinning and left CTR Height: 5 ft Weight (kg): 89 kg Body Mass Index: 38.3 BMI Classification: Obese - NPO >8 hours - Is Patient ?: No Home Medications and Allergies Home Medications: Ambulatory Orders Diltiazem [Cardizem] 5 mg PO DAILY 04/23/21 Losartan [Cozaar] 50 mg PO DAILY 04/23/21 Rosuvastatin Calcium [Crestor] 10 mg PO DAILY 04/23/21 Albuterol [Ventolin Hfa] 2 puffs INH Q4H PRN 07/28/14 Aspirin [Aspir 81] 81 mg PO DAILY 07/28/14 Fluticasone/Salmeterol 250/50 [Advair 250 Mcg/50 Mcg] 1 puffs INH BID 07/28/14 Pyridoxine HCl [Vitamin B-6] 25 mg PO DAILY 07/28/14 Diltiazem [Cardizem] 5 mg PO DAILY 04/23/21 Losartan [Cozaar] 50 mg PO DAILY 04/23/21 Rosuvastatin Calcium [Crestor] 10 mg PO DAILY 04/23/21 Allergies/Adverse Reactions: Allergies Allergy/AdvReac Type Severity Reaction Status Date / Time atenolol Allergy Unknown Verified 04/18/21 09:51 ciprofloxacin Allergy Rash Verified 04/18/21 09:51 metronidazole [From Flagyl] Allergy Rash Verified 04/18/21 09:51 pollen extracts Allergy Unknown Verified 04/18/21 09:51 Anes History & Medical History - Anesthetic History Anesthesia Complications: reports: No previous complications - Medical History Cardiovascular: reports: Hypertension, High cholesterol, Atrial fibrillation (paroxysmal. currently in afib) Pulmonary: reports: Asthma Gastrointestinal: reports: None Urinary: reports: None Neuro: reports: None Musculoskeletal: reports: Osteoarthritis Endocrine/Autoimmune: reports: None Blood Disorders: reports: None Skin: reports: None Smoking Status: Never smoker Psychosocial: reports: No issues indicated History of Cancer?: No - Surgical History General: reports: Colonoscopy Eyes Ears Nose Throat (EENT): reports: Cataracts Gynecologic: reports: LEEP (Cervical surgery) Orthopedic: reports: 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 surgery, Other Exam General: Alert, Oriented x3, Cooperative, No acute distress Dental: WNL Mouth Openin Fingerbreadth Neck Mobility: Normal Mallampati classification: II Thyromental Distance: 4-6 cm Respiratory: Lungs clear, Normal breath sounds, No respiratory distress, No accessory muscle use Cardiovascular: Other (irregular) Mental/Cognitive Status: Alert/Oriented X3, Normal for patient Plan Anesthesia Type: Supraclavicular Block (left) Consent for Procedure(s) Verified and Reviewed: Yes Code Status: Attempt Resuscitation ASA classification: 3-Severe systemic disease Is this case an emergency?: No
[2021-04-24] MEDS ORDERED: LIDOCAINE-PF 2% 10 ML AMP SUBQ ONE (15:02)
[2021-04-24] MEDS ORDERED: ROPIVACAINE 0.5% PF 20 ML AMPULE ONE (15:02)
[2021-04-24] MEDS ORDERED: PROPOFOL 500 MG/50 ML 500 MG/50 ML VIAL ONE (15:03)
[2021-04-24] MEDS ORDERED: MIDAZOLAM 2 MG/2 ML VIAL ONE (15:03)
[2021-04-24] MEDS ORDERED: DEXAMETHASONE 4 MG/ML VIAL ONE (15:08)
[2021-04-24] MEDS ORDERED: fentaNYL 100 MCG/2 ML VIAL ONE (17:08)
--- NOTE | 2021-04-24 17:58 | OPERATIVE REPORT ---
Operative Report - General Procedure Date: 04/24/21 Planned Procedure: Closed reduction, percutaneous pinning left distal radius and left carpal tunnel release Pre-Op Diagnosis: Closed, comminuted intra-articular left distal radius fracture and left car Procedure Performed: Closed reduction, percutaneous pinning with K wires left distal radius and left carpal tunnel release Post Op Diagnosis: Same as preoperative diagnosis - Procedure Note Primary Surgeon: Harshad Griffith MD Secondary Surgeon: Mateo BROTHERS Anesthesia Provider: Na Shields CRNA Anesthesia Technique: Regional block Estimated Blood Loss (mL): 5 Indications: This is a 80-year-old woman who sustained fall and injured her left wrist when she fell onto her outstretched left hand. She was seen in the emergency room following an had an attempt at closed reduction and application of short arm splint. Since the injury she has had pain but her pain is decreasing. Her primary complaint is numbness within the median nerve distribution of fingers left hand. She denies symptoms of carpal tunnel syndrome prior to injury but she does have a history of a right carpal tunnel release in the pastHer x-rays show a comminuted, displaced intra-articular fracture of the left distal radius. Her neurovascular status was intact to left hand. She does have swelling about the wrist and fingers of the left hand. There were no fracture blisters. There is no sign of compartment syndrome. Findings: The median nerve at the time of carpal tunnel release showed mild edema and hyperemia. The flexor tendons appeared normal and the remainder of the carpal tunnel appeared normal. The fracture of the distal radius which was comminuted, intra-articular, displaced with associated osteopenia showed marked improvement in alignment with fingertrap traction. Complications: None - Other Other Information/Narrative: The patient was brought to the operating room and placed in a supine position. The left arm was placed in a arm extension table. A pneumatic tourniquet had been applied to the proximal left arm over cast padding. The left upper extremity was prepped and draped in a sterile manner in the usual fashion. A longitudinal incision was made in line with the third webspace. The patient had received a regional block by our nurse process specialist. A timeout procedure was performed by the entire operating room team and all were in agreement.The incision began just distal to the wrist flexor crease and extended for 2.5 cm. The subcutaneous tissue and palmar aponeurosis were divided in line with the incision. The transverse carpal ligament was identified proximally and was incised. A blunt obturator was inserted beneath the transverse carpal ligament. The transverse carpal ligament was then divided from proximal to distal under direct visualization. The transverse carpal ligament was divided proximally with blunt tip scissors to achieve a full release of the carpal tunnel. The median nerve was inspected. The wound was irrigated. The skin was closed with interrupted 4-0 nylon vertical mattress suture. A bulky hand dressing was applied to the left hand and wrist with mild compression. A pneumatic tourniquet was utilized during the procedure. Hemostasis was achieved with electro cautery. The patient tolerated procedure well The patient was brought to the operating room and was placed in a supine position with the left arm on a arm extension table. He received a regional block with supplemental sedation. The left upper extremity was prepped and draped in a sterile manner in the usual fashion. The C-arm image intensifier was utilized and covered with a sterile drape. A timeout procedure was performed by the entire operating room team and all were in agreement. Finger traps were applied to all 5 fingers and a traction bow as well. Longitudinal traction was applied, direct manipulation of the fracture site over a sterile bump. The C-arm image intensifier showed good alignment and a percutaneous pinning was performed with 0.062 K wires. The bare area of the radial styloid was engaged and pin was inserted from the styloid across the fracture to achieve bicortical fixation. An additional K wire from the radial styloid was also inserted to provide 2 bicortical K wires from the radial styloid. An additional K wire were inserted from the ulnar corner of the distal radius distally and this was then driven from distal to proximal and ulnar to radial. A fourth K wire was placed from radial to ulnar paralleling the radial carpal joint. Biplanar and oblique imaging was obtained and there was good alignment of the fixation and fracture. The K wires were cut external to skin and covered with sterile balls. A well-padded short arm fiberglass splint was applied with gauze padding around the K wires. He tolerated the procedure well. No tourniquet was utilized.
[2021-04-24] MEDS ORDERED: LACTATED RINGERS 500 ML IV ONE (18:00)
[2021-04-24] MEDS ORDERED: KETOROLAC 15 MG/ML VIAL IVP STA (18:01)
[2021-04-24] MEDS ORDERED: oxyCODONE 5 MG TABLET PO PRN (18:02)
--- NOTE | 2021-04-24 18:09 | ANESTHESIA POST OP EVALUATION ---
Anesthesia Post Eval - Post Anesthesia Eval Vitals: Last Vital Signs Temp 36.6 C 04/24/21 17:57 Pulse 119 H 04/24/21 17:57 Resp 20 04/24/21 17:57 BP 128/65 04/24/21 17:57 Pulse Ox 98 04/24/21 17:57 CV Function Including HR & BP: Stable Pain Control: Satisfactory Nausea & Vomiting: Negative Mental Status: Baseline Respiratory Status: Airway Patent Hydration Status: Satisfactory Anesthesia Complications: None
[2021-04-24 18:56] VITALS: BP 128/56
--- NOTE | 2021-04-25 11:56 | XRAY Report ---
PROCEDURE: OR C-Arm Procedure INDICATIONS: PERC PINNING WRIST COMPARISON: None. FINDINGS: Operative fluoroscopic views of percutaneous pinning of the distal radius. IMPRESSION: Intraoperative fluoroscopic views. Reviewed by: Karthikeyan Rivas on 04/25/2021 11:55 AM [facility] Approved by: Karthikeyan Rivas on 04/25/2021 11:55 AM [facility] Station ID: [id number]
== END 2021-04-24 12:32 | disposition home or self-care (01) ==
LOC: SDS 12:31
PROVIDERS: ATTEND Orthopaedic Surgery
DX: S52.572A Other intraarticular fracture of lower end of left radius, initial encounter for closed fracture (principal); G56.02 Carpal tunnel syndrome, left upper limb; M85.88 Other specified disorders of bone density and structure, other site; E66.9 Obesity, unspecified; Z68.38 Body mass index [BMI] 38.0-38.9, adult
CPT/HCPCS: 25606; 64721; A9270; C1713; J0690; J7120

== ENCOUNTER 2021-05-30 11:26 | Outpatient (CLI) | payer MEDICARE, OTHER ==
--- NOTE | 2021-05-30 13:11 | XRAY Report ---
PROCEDURE: Wrist 3 View LT INDICATIONS: WRIST FX POST PIN REMOVAL TECHNIQUE: 3 views of the wrist were acquired. COMPARISON: Left wrist radiographs 04/16/2021 FINDINGS: Bones: There is generalized osteopenia. Previously seen comminuted intra-articular radial fracture is redemonstrated with improved alignment when compared to preoperative exams. A minimally displaced ul parvin styloid fracture is present, with improved alignment when compared to prior exams. Soft tissues: No suspicious soft tissue calcifications. Soft tissue edema is seen surrounding the wr ist. IMPRESSION: Healing comminuted intra-articular distal radial fracture with improved alignment. Ulnar styloid frac ture also demonstrates improved alignment. Reviewed by: Kermit Garcia MD on 05/30/2021 1:10 PM PST Approved by: Kermit Garcia MD on 05/30/2021 1:10 PM PST Station ID: [id number]
== END 2021-05-30 11:27 | disposition home or self-care (01) ==
LOC: DI.WOS 11:26
PROVIDERS: ATTEND Orthopaedic Surgery
DX: S52.572D Other intraarticular fracture of lower end of left radius, subsequent encounter for closed fracture with routine healing (principal); S52.612D Displaced fracture of left ulna styloid process, subsequent encounter for closed fracture with routine healing

== ENCOUNTER 2021-06-03 13:32 | Outpatient (CLI) | payer MEDICARE, OTHER | END 2021-06-03 23:59 | disposition home or self-care (01) | LOC: LAB.N 13:32 | PROVIDERS: ATTEND Physician Assistant | DX: N30.01 Acute cystitis with hematuria (principal) | CPT/HCPCS: 87077; 87086; 87181 ==

== ENCOUNTER 2021-06-18 08:52 | Outpatient (CLI) | payer MEDICARE, OTHER ==
[2021-06-18 12:29] LABS: CHOL/HDL RATIO 2.3 (<4.4); CHOLESTEROL 145 mg/dL; HDL CHOLESTEROL 63 mg/dL; LDL CHOLESTEROL,CALCULATED 68 mg/dL; LDL/HDL RATIO 1.1 (<4.4); TRIGLYCERIDES 68 mg/dL; VLDL CHOLESTEROL 14 mg/dL
== END 2021-06-18 08:53 | disposition home or self-care (01) ==
LOC: LAB.N 08:52
PROVIDERS: ATTEND Internal Medicine Cardiovascular Disease
DX: I48.91 Unspecified atrial fibrillation (principal); I10 Essential (primary) hypertension
CPT/HCPCS: 36415; 80061; 83721

== ENCOUNTER 2021-10-14 09:08 | Outpatient (CLI) | payer MEDICARE, OTHER ==
--- NOTE | 2021-10-15 09:15 | Mammography Report ---
BILATERAL DIGITAL SCREENING MAMMOGRAM 3D/2D: 10/14/2021 CLINICAL: Routine screening. Comparison is made to exams dated: 05/03/2020 mammogram, 04/15/2019 mammogram, 03/01/2018 mammogram, 02/28/2016 mammogram, 01/04/2015 mammogram, and 12/20/2013 mammogram - [facility]. Th e tissue of both breasts is predominantly fatty. There is a benign calcification in the left breast. No significant masses, calcifications, or other findings are seen in either breast. There has been no significant interval change. IMPRESSION: BENIGN There is no mammographic evidence of malignancy. A 1 year screening mammogram is recommended. Based on the Tyrer Cuzick model (a risk assessment model) the patients lifetime risk is 1.7% and her 10 year risk is 0.0%. According to the ACR, ACS, and NCCN guidelines, an annual breast MRI exam [place] with mammogram is recommended if the patients lifetime risk is 20% or greater. This exam was interpreted at Station ID: [id number]. NOTE: For mammograms, a report in lay terms will be sent to the patient. Approximately 15% of breast malignancies will not be visualized mammographically. In the management of a palpable breast mass, a negative mammogram must not discourage biopsy of a clinically suspicious lesion. Electronically Signed By: Cm Baker M.D., jr/sal:10/14/2021 10:04:10 ACR BI-RADS Category 2: Benign Finding(s) 3342F PARENCHYMAL PATTERN: (F) - The breast(s) demonstrate(s) diffuse fatty replacement. BI-RADS CATEGORY: (2) - 2 RECOMMENDATION: (ANNUAL) - Recommend routine annual screening mammography. [id number] 1 year screening LATERALITY: (B)
== END 2021-10-14 09:09 | disposition home or self-care (01) ==
LOC: DI.N 09:08
DX: Z12.31 Encounter for screening mammogram for malignant neoplasm of breast (principal)

== ENCOUNTER 2021-10-15 09:29 | Outpatient (CLI) | payer MEDICARE, OTHER ==
[2021-10-15 11:55] LABS: BASOPHILS % (AUTO) 0.3 %; EOSINOPHILS # (AUTO) 0.2 10^3/uL (0.0-0.7); HCT - HEMATOCRIT 42.8 % (37.0-47.0); HGB - HEMOGLOBIN 13.7 g/dL (12.0-16.0); LYMPHOCYTES # (AUTO) 1.5 10^3/uL (1.5-3.5); LYMPHOCYTES % (AUTO) 25.3 %; MEAN CORPUSCULAR HEMOGLOBIN 29.1 pg (27.0-31.0); MEAN CORPUSCULAR VOLUME 91.1 fL (81.0-99.0); MEAN PLATELET VOLUME 10.8 fL (7.9-10.8); MONOCYTES # (AUTO) 0.4 10^3/uL (0.0-1.0); MONOCYTES % (AUTO) 6.8 %; NEUTROPHILS # (AUTO) 3.9 10^3/uL (1.5-6.6); NEUTROPHILS % (AUTO) 64.3 %; PLT - PLATELET COUNT 308 10^3/uL (130-450); RED CELL DISTRIBUTION WIDTH 14.4 % (12.0-15.0)
[2021-10-15 12:28] LABS: ALBUMIN 3.5 g/dL (3.2-5.5); ALBUMIN/GLOBULIN RATIO 1.1 (1.0-2.2); BILIRUBIN,TOTAL 0.3 mg/dL (0.2-1.0); CALCIUM 9.4 mg/dL (8.5-10.3); POTASSIUM 4.4 mmol/L (3.5-5.0); TOTAL PROTEIN 6.8 g/dL (6.7-8.2)
[2021-10-15 12:45] LABS: THYROID STIMULATING HORMONE 3.11 uIU/mL (0.34-5.60)
== END 2021-10-15 09:30 | disposition home or self-care (01) ==
LOC: LAB.N 09:29
PROVIDERS: ATTEND Family Medicine
DX: G25.0 Essential tremor (principal); K21.9 Gastro-esophageal reflux disease without esophagitis; I48.0 Paroxysmal atrial fibrillation; J44.9 Chronic obstructive pulmonary disease, unspecified; I10 Essential (primary) hypertension; J45.909 Unspecified asthma, uncomplicated
CPT/HCPCS: 36415; 80053; 84443; 85025

== ENCOUNTER 2021-11-05 08:19 | Outpatient (CLI) | payer MEDICARE, OTHER ==
--- NOTE | 2021-11-05 13:39 | DEXA Report ---
PROCEDURE: Dexa Spine and/or Hip INDICATIONS: POSTMENOPAUSAL TECHNIQUE: Dual energy x-ray absorptiometry (DXA) was performed on a [employer] System. Regions measur ed are the AP Spine, femoral neck, and if needed forearm. COMPARISON: None. FINDINGS: Lumbar Spine: Bone Mineral Density 1.241 g/cm/cm,T score 0.5, normal. Left Hip: Bone Mineral Density 0.801 g/cm/cm,T score -1.6, osteopenia. Left Femoral Neck: Bone Mineral Density 0.701 g/cm/cm, T score -2.4, osteopenia. (T score greater or equal to -1.0: NORMAL) (T score from -1.1 to -2.4: OSTEOPENIA) (T score less than or equal to -2.5 to: OSTEOPOROSIS) Impression: Osteopenia. Patients with diagnosis of osteoporosis or osteopenia should have regular bone mineral density assess ment. For those eligible for Medicare, routine testing is allowed once every 2 years. Testing frequ ency can be increased for patients who have rapidly progressing disease or for those who are receivin g medical therapy to restore bone mass. Reviewed by: Kermit Kincaid MD on 11/05/2021 1:37 PM PDT Approved by: Kermit Kincaid MD on 11/05/2021 1:37 PM PDT Station ID: [id number]
== END 2021-11-05 08:20 | disposition home or self-care (01) ==
LOC: DI 08:19
PROVIDERS: ATTEND Family Medicine
DX: M85.89 Other specified disorders of bone density and structure, multiple sites (principal); Z78.0 Asymptomatic menopausal state

== ENCOUNTER 2022-04-11 09:21 | Outpatient (CLI) | payer MEDICARE, OTHER ==
[2022-04-11 11:48] LABS: BASOPHILS % (AUTO) 0.4 %; EOSINOPHILS # (AUTO) 0.2 10^3/uL (0.0-0.7); EOSINOPHILS % (AUTO) 3.6 %; HCT - HEMATOCRIT 42.1 % (37.0-47.0); HGB - HEMOGLOBIN 12.8 g/dL (12.0-16.0); LYMPHOCYTES # (AUTO) 1.7 10^3/uL (1.5-3.5); LYMPHOCYTES % (AUTO) 31.5 %; MEAN CORPUSCULAR HGB CONC 30.4 g/dL (32.0-36.0); MEAN CORPUSCULAR VOLUME 95.5 fL (81.0-99.0); MEAN PLATELET VOLUME 10.3 fL (7.9-10.8); MONOCYTES # (AUTO) 0.5 10^3/uL (0.0-1.0); MONOCYTES % (AUTO) 9.7 %; NEUTROPHILS % (AUTO) 54.6 %; PLT - PLATELET COUNT 287 10^3/uL (130-450); RED BLOOD COUNT 4.41 10^6/uL (4.20-5.40); RED CELL DISTRIBUTION WIDTH 13.6 % (12.0-15.0); WHITE BLOOD COUNT 5.5 x10^3/uL (4.8-10.8)
[2022-04-11 12:09] LABS: ALBUMIN 3.5 g/dL (3.2-5.5); ALBUMIN/GLOBULIN RATIO 1.2 (1.0-2.2); ALKALINE PHOSPHATASE 50 IU/L (42-121); ALT ALANINE AMINOTRANSFERASE 21 IU/L (10-60); AST ASPARTATE AMINOTRANSFERASE 25 IU/L (10-42); BILIRUBIN,TOTAL 0.6 mg/dL (0.2-1.0); BUN - BLOOD UREA NITROGEN 20 mg/dL (6-20); CARBON DIOXIDE - CO2 32 mmol/L (21-32); CHLORIDE 105 mmol/L (101-111); CHOL/HDL RATIO 2.4 (<4.4); CHOLESTEROL 178 mg/dL; GFR - MDRD 53 (>89); GLUCOSE 88 mg/dL (70-100); HDL CHOLESTEROL 75 mg/dL; LDL CHOLESTEROL,CALCULATED 91 mg/dL; LDL/HDL RATIO 1.2 (<4.4); POTASSIUM 4.4 mmol/L (3.5-5.0); SODIUM 141 mmol/L (135-145); TOTAL PROTEIN 6.4 g/dL (6.7-8.2); TRIGLYCERIDES 60 mg/dL; VLDL CHOLESTEROL 12 mg/dL
[2022-04-11 12:19] LABS: THYROID STIMULATING HORMONE 3.04 uIU/mL (0.34-5.60)
== END 2022-04-11 09:22 | disposition home or self-care (01) ==
LOC: LAB.N 09:21
PROVIDERS: ATTEND Family Medicine
DX: I10 Essential (primary) hypertension (principal); G25.0 Essential tremor; K21.9 Gastro-esophageal reflux disease without esophagitis; I48.0 Paroxysmal atrial fibrillation; J98.4 Other disorders of lung; E78.5 Hyperlipidemia, unspecified
CPT/HCPCS: 36415; 80053; 80061; 83721; 84443; 85025

== ENCOUNTER 2022-05-22 09:14 | Outpatient (CLI) | payer MEDICARE, OTHER ==
--- NOTE | 2022-05-22 16:40 | XRAY Report ---
PROCEDURE: Hip w/Pelvis 2-3V LT INDICATIONS: LEFT HIP PAIN TECHNIQUE: AP pelvis with lateral view(s) of the left hip(s). COMPARISON: None. FINDINGS: Bones: No fractures or dislocations. Pelvic ring appears intact. No suspicious bony lesions. Mild periarticular osteophyte formation at the bilateral hip joints. Soft tissues: The visualized bowel gas pattern is normal. No suspicious soft tissue calcifications. IMPRESSION: Osteoarthritis. No acute fracture. No osseous lesion. If symptoms and/or clinical suspic ion for pathology continue, further assessment with repeat plain films, or advanced imaging (e.g., CT , MRI, or bone scan) is recommended for further assessment. Reviewed by: Cra Quarles MD on 05/22/2022 4:39 PM PST Approved by: Car Quarles MD on 05/22/2022 4:39 PM PST Station ID: [id number]
== END 2022-05-22 09:15 | disposition home or self-care (01) ==
LOC: DI 09:14
PROVIDERS: ATTEND Family Medicine
DX: M43.16 Spondylolisthesis, lumbar region (principal); M16.12 Unilateral primary osteoarthritis, left hip

== ENCOUNTER 2022-05-27 12:00 | Outpatient (CLI) | payer MEDICARE, OTHER ==
--- NOTE | 2022-05-27 15:54 | XRAY Report ---
PROCEDURE: Lumbar Spine 2 View INDICATIONS: HIP JOINT PX, LEFT TECHNIQUE: 3 views of the lumbar spine were acquired. COMPARISON: None. FINDINGS: Bones: 5 [id number] vertebrae are present. There is a 1.4 cm of L4-L5 anterolisthesis. There i s 4 mm of L3-L4 anterolisthesis. There is 3 mm of L1-L2 and L2-L3 retrolisthesis. No vertebral body c ompression fractures. No suspicious bony lesions. Moderate degenerative changes noted throughout the lumbar spine. Moderate L3-L4, L4-L5 and L5-S1 facet hypertrophy. Mild L1 and L2-L3 facet hypertrophy . Soft tissues: Overlying bowel gas pattern is normal. No suspicious soft tissue calcifications. IMPRESSION: 1. Multilevel degenerative disc disease. 2. Multilevel facet arthropathy. 3. No fracture. No acute osseous lesion. If there is continued clinical concern for pathology, then M RI should be considered for further evaluation. 4. Grade 2 L4-L5 degenerative anterolisthesis. Reviewed by: Pina Dodson MD, PhD on 05/27/2022 3:52 PM PST Approved by: Pina Dodson MD, PhD on 05/27/2022 3:52 PM PST Station ID: [id number]
== END 2022-05-27 12:01 | disposition home or self-care (01) ==
LOC: DI 12:00
PROVIDERS: ATTEND Family Medicine
DX: M51.36 Other intervertebral disc degeneration, lumbar region (principal); M47.816 Spondylosis without myelopathy or radiculopathy, lumbar region; M47.817 Spondylosis without myelopathy or radiculopathy, lumbosacral region; M43.16 Spondylolisthesis, lumbar region; M51.37 Other intervertebral disc degeneration, lumbosacral region

== ENCOUNTER 2022-06-02 11:50 | Outpatient (CLI) | payer MEDICARE, OTHER ==
--- NOTE | 2022-06-02 21:14 | XRAY Report ---
PROCEDURE: Knee 3 View LT INDICATIONS: DJD,KNEE LEFT TECHNIQUE: 3 views of the left knee(s) were acquired. COMPARISON: None. FINDINGS: Bones: No fractures or dislocations. No suspicious bony lesions. There is severe medial compartmen t narrowing with subchondral sclerosis and periarticular osteophytes. Mild lateral compartment narrow ing. Soft tissues: No joint effusion. No suspicious soft tissue calcifications. IMPRESSION: Severe medial compartment narrowing consistent with arthritis. Reviewed by: Rosalina Patiño MD on 06/02/2022 9:13 PM PST Approved by: Rosalina Patiño MD on 06/02/2022 9:13 PM PST Station ID: [id number]
== END 2022-06-02 11:51 | disposition home or self-care (01) ==
LOC: DI 11:50
PROVIDERS: ATTEND Family Medicine
DX: M17.12 Unilateral primary osteoarthritis, left knee (principal)

== ENCOUNTER 2022-11-11 10:23 | Outpatient (CLI) | payer MEDICARE, OTHER ==
--- NOTE | 2022-11-12 09:24 | Mammography Report ---
BILATERAL DIGITAL SCREENING MAMMOGRAM 3D/2D: 11/11/2022 CLINICAL: Routine screening. Comparison is made to exams dated: 10/14/2021 mammogram, 05/03/2020 mammogram, 04/15/2019 mammogram, 05/01/2017 mammogram, 02/28/2016 mammogram, and 01/04/2015 mammogram - [facility]. Both breasts are almost entirely fatty (category a/<25% glandular tissue). There is a benign calcification in the left breast. No significant masses, calcifications, or other findings are seen in either breast. There has been no significant interval change. IMPRESSION: BENIGN There is no mammographic evidence of malignancy. A 1 year screening mammogram is recommended. Based on the Tyrer Cuzick model (a risk assessment model) the patients lifetime risk is 1.4% and her 10 year risk is 0.0%. According to the ACR, ACS, and NCCN guidelines, an annual breast MRI exam [place] with mammogram is recommended if the patients lifetime risk is 20% or greater. This exam was interpreted at Station ID: [id number]. NOTE: For mammograms, a report in lay terms will be sent to the patient. Approximately 15% of breast malignancies will not be visualized mammographically. In the management of a palpable breast mass, a negative mammogram must not discourage biopsy of a clinically suspicious lesion. Electronically Signed By: Gail montesinos/sal:11/11/2022 14:54:28 letter sent: No_Letter ACR BI-RADS Category 2: Benign Finding(s) 3342F PARENCHYMAL PATTERN: (F) - The breast(s) demonstrate(s) diffuse fatty replacement. BI-RADS CATEGORY: (2) - 2 Mammogram [id number] 1 year screening LATERALITY: (B)
== END 2022-11-11 10:24 | disposition home or self-care (01) ==
LOC: DI.N 10:23
DX: Z12.31 Encounter for screening mammogram for malignant neoplasm of breast (principal)

== ENCOUNTER 2022-11-17 11:15 | Outpatient (CLI) | payer MEDICARE, OTHER | END 2022-11-17 11:30 | disposition home or self-care (01) | LOC: LAB.N 11:15 | PROVIDERS: ATTEND Nurse Practitioner | DX: N39.0 Urinary tract infection, site not specified (principal) | CPT/HCPCS: 87077; 87086; 87181 ==

== ENCOUNTER 2023-02-24 07:28 | Outpatient (CLI) | payer MEDICARE, OTHER ==
[2023-02-24 12:26] LABS: BASOPHILS % (AUTO) 0.2 %; EOSINOPHILS # (AUTO) 0.1 10^3/uL (0.0-0.7); EOSINOPHILS % (AUTO) 2.1 %; HCT - HEMATOCRIT 43.2 % (37.0-47.0); HGB - HEMOGLOBIN 13.4 g/dL (12.0-16.0); LYMPHOCYTES # (AUTO) 1.8 10^3/uL (1.5-3.5); LYMPHOCYTES % (AUTO) 30.1 %; MEAN CORPUSCULAR HEMOGLOBIN 29.8 pg (27.0-31.0); MEAN PLATELET VOLUME 10.7 fL (7.9-10.8); MONOCYTES # (AUTO) 0.5 10^3/uL (0.0-1.0); MONOCYTES % (AUTO) 8.9 %; NEUTROPHILS # (AUTO) 3.5 10^3/uL (1.5-6.6); NEUTROPHILS % (AUTO) 58.5 %; PLT - PLATELET COUNT 308 10^3/uL (130-450); RED CELL DISTRIBUTION WIDTH 13.3 % (12.0-15.0); WHITE BLOOD COUNT 6.1 x10^3/uL (4.8-10.8)
[2023-02-24 12:52] LABS: CHOL/HDL RATIO 2.4 (<4.4); CHOLESTEROL 171 mg/dL; HDL CHOLESTEROL 70 mg/dL; LDL CHOLESTEROL,CALCULATED 82 mg/dL; LDL/HDL RATIO 1.2 (<4.4); TRIGLYCERIDES 96 mg/dL (48-352); VLDL CHOLESTEROL 19 mg/dL
[2023-02-24 12:53] LABS: THYROID STIMULATING HORMONE 3.38 uIU/mL (0.34-5.60)
== END 2023-02-24 07:29 | disposition home or self-care (01) ==
LOC: LAB.N 07:28
PROVIDERS: ATTEND Family Medicine
DX: J45.909 Unspecified asthma, uncomplicated (principal); I25.10 Atherosclerotic heart disease of native coronary artery without angina pectoris; I10 Essential (primary) hypertension
CPT/HCPCS: 36415; 80061; 83721; 84443; 85025

== ENCOUNTER 2023-03-03 11:57 | Outpatient (CLI) | payer MEDICARE, OTHER ==
[2023-03-03 18:14] LABS: ALBUMIN 3.9 g/dL (3.2-5.5); ALBUMIN/GLOBULIN RATIO 1.7 (1.0-2.2); BILIRUBIN,TOTAL 0.4 mg/dL (0.2-1.0); CALCIUM 9.5 mg/dL (8.5-10.3); CREATININE 1.2 mg/dL (0.6-1.3); POTASSIUM 4.3 mmol/L (3.5-4.5); TOTAL PROTEIN 6.2 g/dL (6.4-8.9)
== END 2023-03-03 11:58 | disposition home or self-care (01) ==
LOC: LAB.N 11:57
PROVIDERS: ATTEND Internal Medicine Cardiovascular Disease
DX: J45.909 Unspecified asthma, uncomplicated (principal)
CPT/HCPCS: 36415; 80053

== ENCOUNTER 2023-09-04 11:12 | Outpatient (CLI) | payer MEDICARE, OTHER ==
[2023-09-04 18:16] LABS: BASOPHILS % (AUTO) 0.1 %; EOSINOPHILS # (AUTO) 0.1 10^3/uL (0.0-0.7); HCT - HEMATOCRIT 44.7 % (37.0-47.0); HGB - HEMOGLOBIN 13.9 g/dL (12.0-16.0); LYMPHOCYTES # (AUTO) 1.9 10^3/uL (1.5-3.5); LYMPHOCYTES % (AUTO) 24.2 %; MEAN CORPUSCULAR HEMOGLOBIN 29.2 pg (27.0-31.0); MEAN CORPUSCULAR HGB CONC 31.1 g/dL (32.0-36.0); MEAN CORPUSCULAR VOLUME 93.9 fL (81.0-99.0); MEAN PLATELET VOLUME 10.9 fL (7.9-10.8); MONOCYTES # (AUTO) 0.5 10^3/uL (0.0-1.0); MONOCYTES % (AUTO) 6.8 %; NEUTROPHILS # (AUTO) 5.4 10^3/uL (1.5-6.6); NEUTROPHILS % (AUTO) 67.6 %; PLT - PLATELET COUNT 279 10^3/uL (130-450); RED BLOOD COUNT 4.76 10^6/uL (4.20-5.40); RED CELL DISTRIBUTION WIDTH 13.7 % (12.0-15.0); WHITE BLOOD COUNT 7.9 x10^3/uL (4.8-10.8)
[2023-09-04 18:29] LABS: ALBUMIN 3.9 g/dL (3.2-5.5); ALBUMIN/GLOBULIN RATIO 1.5 (1.0-2.2); BILIRUBIN,TOTAL 0.4 mg/dL (0.2-1.0); CALCIUM 9.5 mg/dL (8.5-10.3); CREATININE 0.9 mg/dL (0.6-1.3); TOTAL PROTEIN 6.5 g/dL (6.4-8.9)
[2023-09-04 21:20] LABS: CREATININE,URINE 397.6 mg/dL; PROTEIN/CREATININE RATIO,URINE 0.1 (<=0.2)
== END 2023-09-04 11:13 | disposition home or self-care (01) ==
LOC: LAB.N 11:12
PROVIDERS: ATTEND Internal Medicine Cardiovascular Disease
DX: I10 Essential (primary) hypertension (principal); I48.11 Longstanding persistent atrial fibrillation
CPT/HCPCS: 36415; 80053; 82570; 84156; 85025

== ENCOUNTER 2023-10-09 08:00 | Outpatient (CLI) | payer MEDICARE, OTHER | END 2023-10-09 23:59 | disposition home or self-care (01) | LOC: LAB.N 08:00 | PROVIDERS: ATTEND Physician Assistant Medical | DX: N30.00 Acute cystitis without hematuria (principal) | CPT/HCPCS: 87086 ==

== ENCOUNTER 2023-11-17 11:49 | Outpatient (CLI) | payer MEDICARE, OTHER ==
[2023-11-17 18:02] LABS: BASOPHILS % (AUTO) 0.3 %; EOSINOPHILS # (AUTO) 0.2 10^3/uL (0.0-0.7); EOSINOPHILS % (AUTO) 1.7 %; HGB - HEMOGLOBIN 12.2 g/dL (12.0-16.0); LYMPHOCYTES # (AUTO) 1.9 10^3/uL (1.5-3.5); MEAN CORPUSCULAR HEMOGLOBIN 29.5 pg (27.0-31.0); MEAN CORPUSCULAR HGB CONC 30.5 g/dL (32.0-36.0); MEAN CORPUSCULAR VOLUME 96.6 fL (81.0-99.0); MEAN PLATELET VOLUME 10.1 fL (7.9-10.8); MONOCYTES # (AUTO) 0.6 10^3/uL (0.0-1.0); MONOCYTES % (AUTO) 6.8 %; NEUTROPHILS # (AUTO) 5.9 10^3/uL (1.5-6.6); NEUTROPHILS % (AUTO) 68.7 %; PLT - PLATELET COUNT 444 10^3/uL (130-450); RED BLOOD COUNT 4.14 10^6/uL (4.20-5.40); RED CELL DISTRIBUTION WIDTH 14.8 % (12.0-15.0); WHITE BLOOD COUNT 8.6 x10^3/uL (4.8-10.8)
[2023-11-17 18:22] LABS: ALBUMIN 3.9 g/dL (3.2-5.5); ALBUMIN/GLOBULIN RATIO 1.4 (1.0-2.2); ALKALINE PHOSPHATASE 67 IU/L (42-121); ALT ALANINE AMINOTRANSFERASE 12 IU/L (10-60); AST ASPARTATE AMINOTRANSFERASE 19 IU/L (10-42); BILIRUBIN,TOTAL 0.5 mg/dL (0.2-1.0); BUN - BLOOD UREA NITROGEN 17 mg/dL (6-20); CALCIUM 9.9 mg/dL (8.5-10.3); CARBON DIOXIDE - CO2 32 mmol/L (21-32); CHLORIDE 106 mmol/L (101-111); CHOL/HDL RATIO 2.8 (<4.4); CHOLESTEROL 162 mg/dL; CREATININE 0.9 mg/dL (0.6-1.3); GFR - MDRD 60 (>89); GLUCOSE 89 mg/dL (74-104); HDL CHOLESTEROL 58 mg/dL; LDL CHOLESTEROL,CALCULATED 82 mg/dL; LDL/HDL RATIO 1.4 (<4.4); POTASSIUM 4.4 mmol/L (3.5-4.5); SODIUM 142 mmol/L (135-145); TOTAL PROTEIN 6.7 g/dL (6.4-8.9); TRIGLYCERIDES 112 mg/dL; VLDL CHOLESTEROL 22 mg/dL
[2023-11-17 18:35] LABS: THYROID STIMULATING HORMONE 1.32 uIU/mL (0.34-5.60)
== END 2023-11-17 11:50 | disposition home or self-care (01) ==
LOC: LAB.N 11:49
PROVIDERS: ATTEND Family Medicine
DX: I48.0 Paroxysmal atrial fibrillation (principal); Z79.01 Long term (current) use of anticoagulants; M17.12 Unilateral primary osteoarthritis, left knee; I35.8 Other nonrheumatic aortic valve disorders; G25.0 Essential tremor; K21.9 Gastro-esophageal reflux disease without esophagitis; M43.16 Spondylolisthesis, lumbar region; J44.9 Chronic obstructive pulmonary disease, unspecified
CPT/HCPCS: 36415; 80053; 80061; 83721; 84443; 85025